=== PATIENT | male | born 1950 | race Caucasian/White ===

== ENCOUNTER 2016-12-10 04:12 | Emergency (ER) | payer MEDICARE, OTHER ==
[~2016-12-10] VITALS: Ht 175.3 cm; Wt 108.0 kg
[~2016-12-10 04:12] MED LIST: ASPI-860 PO; BPR100T PO; CITA10TA4 PO; HALO50CR2 TP; MIRA50TA PO; OXYC1TAB87 PO; PRV20T PO
--- OUTSIDE RECORDS SUMMARY | 2016-12-10 04:17 | XMS REPORT | Continuity of Care Document ---
Author Author [facility] Address Unknown Phone Unavailable Allergies Active Description Code Type Severity Reaction Onset Reported/Identified Relationship to Patient Clinical Status Yes NKA NKA Drug Allergy N/A N/A Yes No Known Drug Allergies [id number] Drug Allergy Unknown N/ A 07/16/2013 Medications Problems Date Dx Coded Attending Type Code Diagnosis Diagnosed By 07/16/2013 AMOL LAURENT, CHAIM L Ot 913.0 ABRASION FOREARM 07/16/2013 AMOL LAURENT, CHAIM L Ot 920 CONTUSION FACE/SCALP/NCK 07/16/2013 AMOL LAURENT, CHAIM L Ot 923.00 CONTUSION SHOULDER REG 07/16/2013 AMOL LAURENT, CHAIM L Ot 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 07/16/2013 AMOL LAURENT, CHAIM L Ot E000.9 UNSPECIFIED EXTERNAL CAUSE STATUS 07/16/2013 AMOL LAURENT, CHAIM L Ot E030 UNSPECIFIED ACTIVITY 07/16/2013 AMOL LAURENT, CHAIM L Ot E849.[address] NOS 07/16/2013 AMOL LAURENT, CHAIM L Ot E884.9 FALL-1 LEVEL TO OTH NEC 07/28/2014 BOBBI LAURENT, BISHOP Sears Ot 272.0 07/28/2014 BOBBI LAURENT, BISHOP Sears Ot 285.9 07/28/2014 BOBBI LAURENT, BISHOP Sears Ot 427.9 07/28/2014 BOBBI LAURENT, BISHOP Sears Ot 599.0 07/28/2014 BOBBI LAURENT, BISHOP Sears Ot 786.2 07/28/2014 BOBBI LAURENT, BISHOP Sears Ot V10.46 12/03/2014 BOBBI LAURENT, BISHOP Sears Ot 185 12/03/2014 BOBBI LAURENT, BISHOP Sears Ot 272.0 12/03/2014 BOBBI LAURENT, BISHOP Sears Ot 599.0 12/03/2014 BOBBI LAURENT, BISHOP Sears Ot 599.70 12/05/2014 BOBBI LAURENT, BISHOP R Ot 185 12/05/2014 BOBBI LAURENT, BISHOP R Ot 272.0 12/05/2014 BOBBI LAURENT, BISHOP R Ot 599.0 12/05/2014 BOBBI LAURENT, BISHOP R Ot 599.70 02/17/2015 BOBBI LAURENT, BISHOP R Ot 599.0 02/17/2015 BOBBI LAURENT, BISHOP R Ot 272.0 02/17/2015 BOBBI LAURENT, BISHOP R Ot 285.9 02/17/2015 BOBBI LAURENT, BISHOP R Ot 427.9 02/17/2015 BOBBI LAURENT, BISHOP R Ot 599.0 02/17/2015 BOBBI LAURENT, BISHOP R Ot 786.2 02/17/2015 BOBBI LAURENT, BISHOP R Ot V10.46 02/17/2015 BOBBI LAURENT, BISHOP R Ot 185 02/17/2015 BOBBI LAURENT, BISHOP R Ot 272.0 02/17/2015 BOBBI LAURENT, BISHOP R Ot 599.0 02/17/2015 BOBBI LAURENT, BISHOP R Ot 599.70 02/17/2015 BOBBI LAURENT, BISHOP R Ot 599.0 02/26/2015 BOBBI LAURENT, BISHOP R Ot 599.0 03/10/2015 BOBBI LAURENT, BISHOP R Ot 272.0 03/10/2015 BOBBI LAURENT, BISHOP R Ot V58.83 03/20/2015 BOBBI LAURENT, BISHOP Sears Ot 272.0 03/20/2015 BOBBI LAURENT, BISHOP R Ot V58.83 06/05/2015 Ot 719.46 06/05/2015 Ot 719.06 06/05/2015 Ot 719.46 06/05/2015 Ot V70.0 06/05/2015 Ot V76.44 06/05/2015 Ot 185 06/05/2015 Ot 185 06/05/2015 BOBBI LAURENT, BISHOP Sears Ot V70.0 06/05/2015 AMOL LAURENT, CHAIM L Ot 959.2 06/05/2015 AMOL LAURENT, CHAIM L Ot E849.0 06/05/2015 AMOL LAURENT, CHAIM L Ot E884.9 06/05/2015 BOBBI LAURENT, BISHOP R Ot 272.0 06/05/2015 BOBBI LAURENT, BISHOP R Ot 272.0 06/05/2015 BOBBI LAURENT, BISHOP R Ot 285.9 06/05/2015 BOBBI LAURENT, BISHOP R Ot 427.9 06/05/2015 BOBBI LAURENT, BISHOP R Ot 599.0 06/05/2015 BOBBI LAURENT, BISHOP R Ot 786.2 06/05/2015 BOBBI LAURENT, BISHOP R Ot V10.46 06/05/2015 BOBBI LAURENT, BISHOP R Ot 185 06/05/2015 BOBBI LAURENT, BISHOP R Ot 272.0 06/05/2015 BOBBI LAURENT, BISHOP R Ot 599.0 06/05/2015 BOBBI LAURENT, BISHOP R Ot 599.70 06/05/2015 BOBBI LAURENT, BISHOP R Ot 599.0 06/05/2015 BOBBI LAURENT, BISHOP R Ot 272.0 06/05/2015 BOBBI LAURENT, BISHOP R Ot V58.83 07/01/2015 BOBBI LAURENT, BISHOP R Ot D50.8 07/01/2015 BOBBI LAURENT, BISHOP R Ot E03.9 07/01/2015 BOBBI LAURENT, BISHOP R Ot E11.9 07/01/2015 BOBBI LAURENT, BISHOP R Ot I49.9 07/01/2015 BOBBI LAURENT, BISHOP R Ot N39.0 07/01/2015 BOBBI LAURENT, BISHOP R Ot R06.00 07/01/2015 BOBBI LAURENT, BISHOP R Ot R79.89 07/01/2015 BOBBI LAURENT, BISHOP R Ot Z85.46 10/19/2015 Ernesto LAURENT, Hugo Wolfe Ot C61 10/19/2015 Ernesto LAURENT, Hugo Wolfe Ot C61 10/22/2015 Ernesto LAURENT, Hugo Wolfe Ot C61 02/29/2016 Ernesto LAURENT, Hugo Wolfe Ot C61 MALIGNANT NEOPLASM OF PROSTATE 02/29/2016 Ernesto LAURENT, Hugo Wolfe Ot C61 MALIGNANT NEOPLASM OF PROSTATE 03/03/2016 Ernesto LAURENT, Hugo Wolfe Ot C61 MALIGNANT NEOPLASM OF PROSTATE 03/04/2016 Ernesto LAURENT, uHgo Wolfe Ot C61 MALIGNANT NEOPLASM OF PROSTATE 03/22/2016 Willi LAURENT, Khoi Burrows Ot M25.561 PAIN IN RIGHT KNEE 03/28/2016 Ernesto LAURENT, Hugo Wolfe Ot C61 MALIGNANT NEOPLASM OF PROSTATE 04/15/2016 Willi LAURENT, Khoi Burrows Ot M25.561 PAIN IN RIGHT KNEE 05/02/2016 Ot 719.46 JOINT PAIN-L/LEG 05/02/2016 Ot 719.06 JOINT EFFUSION-L/LEG 05/02/2016 Ot 719.46 JOINT PAIN-L/LEG 05/02/2016 Ot V70.0 ROUTINE MEDICAL EXAM 05/02/2016 Ot V76.44 SCREEN MAL NEOP-PROSTATE 05/02/2016 Ot 185 MALIGN NEOPL PROSTATE 05/02/2016 Ot 185 MALIGN NEOPL PROSTATE 05/02/2016 BOBBI LAURENT, BISHOP Sears Ot V70.0 ROUTINE MEDICAL EXAM 05/02/2016 AMOL LAURENT, CHAIM Sepulveda Ot 959.2 SHLDR/UPPER ARM INJ NOS 05/02/2016 AMOL LAURENT, CHAIM L Ot E849.0 ACCIDENT IN HOME 05/02/2016 AMOL LAURENT, CHAIM L Ot E884.9 FALL-1 LEVEL TO OTH NEC 05/02/2016 BISHOP MARTINES MD Ot 272.0 PURE HYPERCHOLESTEROLEM 05/02/2016 BISHOP MARTINES MD Ot 272.0 PURE HYPERCHOLESTEROLEM 05/02/2016 BISHOP MARTINES MD Ot 285.9 ANEMIA NOS 05/02/2016 BISHOP MARTINES MD Ot 427.9 CARDIAC DYSRHYTHMIA NOS 05/02/2016 BISHOP MARTINES MD Ot 599.0 URIN TRACT INFECTION NOS 05/02/2016 BISHOP MARTINES MD Ot 786.2 COUGH 05/02/2016 BISHOP MARTINES MD Ot V10.46 HX-PROSTATIC MALIGNANCY 05/02/2016 BISHOP MARTINES MD Ot 185 MALIGN NEOPL PROSTATE 05/02/2016 BISHOP MARTINES MD Ot 272.0 PURE HYPERCHOLESTEROLEM 05/02/2016 BISHOP MARTINES MD Ot 599.0 URIN TRACT INFECTION NOS 05/02/2016 BISHOP MARTINES MD Ot 599.70 HEMATURIA, UNSPECIFIED 05/02/2016 BISHOP MARTINES MD Ot 599.0 URIN TRACT INFECTION NOS 05/02/2016 BISHOP MARTINES MD Ot 272.0 PURE HYPERCHOLESTEROLEM 05/02/2016 BISHOP MARTINES MD Ot V58.83 ENCOUNTER FOR THERAPEUTIC DRUG MONITORIN 05/02/2016 BISHOP MARTINES MD, Ot D50.8 OTHER IRON DEFICIENCY ANEMIAS 05/02/2016 BISHOP MARTINES MD Ot E03.9 HYPOTHYROIDISM, UNSPECIFIED 05/02/2016 BISHOP MARTINES MD Ot E11.9 TYPE 2 DIABETES MELLITUS WITHOUT COMPLIC 05/02/2016 BISHOP MARTINES MD, Ot I49.9 CARDIAC ARRHYTHMIA, UNSPECIFIED 05/02/2016 BISHOP MARTINES MD, Ot N39.0 URINARY TRACT INFECTION, SITE NOT SPECIF 05/02/2016 BISHOP MARTINES MD, Ot R06.00 DYSPNEA, UNSPECIFIED 05/02/2016 BISHOP MARTINES MD, Ot R79.89 OTHER SPECIFIED ABNORMAL FINDINGS OF BLO 05/02/2016 BISHOP MARTINES MD, Ot Z85.46 PERSONAL HISTORY OF MALIGNANT NEOPLASM O 05/02/2016 Ernesto LAURENT, Hugo Wolfe Ot C61 MALIGNANT NEOPLASM OF PROSTATE 05/02/2016 Hugo Orozco MD, Ot C61 MALIGNANT NEOPLASM OF PROSTATE 05/02/2016 Willi LAURENT, Khoi Burrows Ot M25.561 PAIN IN RIGHT KNEE 05/10/2016 LANDEN TINOCO MD Ot Z13.6 ENCOUNTER FOR SCREENING FOR CARDIOVASCUL 05/12/2016 LANDEN TINOCO MD Ot Z13.6 ENCOUNTER FOR SCREENING FOR CARDIOVASCUL 05/27/2016 LANDEN TINOCO MD Ot Z13.6 ENCOUNTER FOR SCREENING FOR CARDIOVASCUL 06/08/2016 JENNY KASPER MD Ot D12.3 BENIGN NEOPLASM OF TRANSVERSE COLON 06/08/2016 JENNY KASPER MD Ot 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 06/08/2016 JENNY KASPER MD Ot E66.9 OBESITY, UNSPECIFIED 06/08/2016 JENNY KASPER MD Ot K62.1 RECTAL POLYP 06/08/2016 JENNY KASPER MD, Ot K63.5 POLYP OF COLON 06/08/2016 JENNY KASPER MD Ot Z12.11 ENCOUNTER FOR SCREENING FOR MALIGNANT NE 06/08/2016 JENNY KASPER MD Ot Z68.33 BODY MASS INDEX (BMI) 33.0-33.9, ADULT 06/08/2016 JENNY KASPER MD Ot 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 06/08/2016 JENNY KASPER MD Ot Z85.46 PERSONAL HISTORY OF MALIGNANT NEOPLASM O 06/08/2016 JENNY KASPER MD Ot Z87.891 PERSONAL HISTORY OF NICOTINE DEPENDENCE 06/13/2016 LANDEN TINOCO MD J Ot C61 MALIGNANT NEOPLASM OF PROSTATE 06/13/2016 LANDEN TINOCO MD J Ot E78.4 OTHER HYPERLIPIDEMIA 06/13/2016 LANDEN TINOCO MD J Ot C61 MALIGNANT NEOPLASM OF PROSTATE 06/13/2016 LANDEN TINOCO MD J Ot E78.4 OTHER HYPERLIPIDEMIA 06/13/2016 LANDEN TINOCO MD J Ot C61 MALIGNANT NEOPLASM OF PROSTATE 06/13/2016 LANDEN TINOCO MD J Ot E78.4 OTHER HYPERLIPIDEMIA 06/14/2016 LANDEN TINOCO MD J Ot C61 MALIGNANT NEOPLASM OF PROSTATE 06/14/2016 LANDEN TINOCO MD J Ot E78.4 OTHER HYPERLIPIDEMIA 06/17/2016 JENNY KASPER MD Ot D12.3 BENIGN NEOPLASM OF TRANSVERSE COLON 06/17/2016 JENNY KASPER MD Ot 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 06/17/2016 JENNY KASPER MD Ot E66.9 OBESITY, UNSPECIFIED 06/17/2016 JENNY KASPER MD Ot K62.1 RECTAL POLYP 06/17/2016 JENNY KASPER MD Ot K63.5 POLYP OF COLON 06/17/2016 JENNY KASPER MD Ot Z12.11 ENCOUNTER FOR SCREENING FOR MALIGNANT NE 06/17/2016 JENNY KASPER MD Ot Z68.33 BODY MASS INDEX (BMI) 33.0-33.9, ADULT 06/17/2016 JENNY KASPER MD Ot Z79.82 ALF (CURRENT) USE OF ASPIRIN 06/17/2016 JENNY KASPER MD Ot Z85.46 PERSONAL HISTORY OF MALIGNANT NEOPLASM O 06/17/2016 JENNY KASPER MD Ot Z87.891 PERSONAL HISTORY OF NICOTINE DEPENDENCE 06/17/2016 JENNY KASPER MD Ot D12.3 BENIGN NEOPLASM OF TRANSVERSE COLON 06/17/2016 JENNY KASPER MD Ot 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 06/17/2016 JENNY KASPER MD Ot E66.9 OBESITY, UNSPECIFIED 06/17/2016 JENNY KASPER MD Ot K62.1 RECTAL POLYP 06/17/2016 JENNY KASPER MD Ot K63.5 POLYP OF COLON 06/17/2016 JENNY KASPER MD Ot Z12.11 ENCOUNTER FOR SCREENING FOR MALIGNANT NE 06/17/2016 JENNY KASPER MD Ot Z68.33 BODY MASS INDEX (BMI) 33.0-33.9, ADULT 06/17/2016 JENNY KASPER MD Ot Z79.82 ALF (CURRENT) USE OF ASPIRIN 06/17/2016 JENNY KASPER MD Ot Z85.46 PERSONAL HISTORY OF MALIGNANT NEOPLASM O 06/17/2016 JENNY KASPER MD Ot Z87.891 PERSONAL HISTORY OF NICOTINE DEPENDENCE 06/17/2016 JENNY KASPER MD Ot D12.3 BENIGN NEOPLASM OF TRANSVERSE COLON 06/17/2016 JENNY KASPER MD Ot 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 06/17/2016 JENNY KASPER MD Ot E66.9 OBESITY, UNSPECIFIED 06/17/2016 JENNY KASPER MD Ot K62.1 RECTAL POLYP 06/17/2016 JENNY KASPER MD Ot K63.5 POLYP OF COLON 06/17/2016 JENNY KASPER MD Ot Z12.11 ENCOUNTER FOR SCREENING FOR MALIGNANT NE 06/17/2016 JENNY KASPER MD Ot Z68.33 BODY MASS INDEX (BMI) 33.0-33.9, ADULT 06/17/2016 JENNY KASPER MD Ot 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 06/17/2016 JENNY KASPER MD Ot Z85.46 PERSONAL HISTORY OF MALIGNANT NEOPLASM O 06/17/2016 JENNY KASPER MD Ot Z87.891 PERSONAL HISTORY OF NICOTINE DEPENDENCE 06/17/2016 JENNY KASPER MD Ot D12.3 BENIGN NEOPLASM OF TRANSVERSE COLON 06/17/2016 JENNY KASPER MD Ot 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 06/17/2016 JENNY KASPER MD Ot E66.9 OBESITY, UNSPECIFIED 06/17/2016 JENNY KASPER MD Ot K62.1 RECTAL POLYP 06/17/2016 JENNY KASPER MD Ot K63.5 POLYP OF COLON 06/17/2016 JENNY KASPER MD Ot Z12.11 ENCOUNTER FOR SCREENING FOR MALIGNANT NE 06/17/2016 JENNY KASPER MD Ot Z68.33 BODY MASS INDEX (BMI) 33.0-33.9, ADULT 06/17/2016 JENNY KASPER MD Ot 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 06/17/2016 JENNY KASPER MD Ot Z85.46 PERSONAL HISTORY OF MALIGNANT NEOPLASM O 06/17/2016 JENNY KASPER MD Ot Z87.891 PERSONAL HISTORY OF NICOTINE DEPENDENCE 06/19/2016 JENNY KASPER MD Ot D12.3 BENIGN NEOPLASM OF TRANSVERSE COLON 06/19/2016 JENNY KASPER MD Ot 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 06/19/2016 JENNY KASPER MD Ot E66.9 OBESITY, UNSPECIFIED 06/19/2016 JENNY KASPER MD Ot K62.1 RECTAL POLYP 06/19/2016 JENNY KASPER MD Ot K63.5 POLYP OF COLON 06/19/2016 JENNY KASPER MD Ot Z12.11 ENCOUNTER FOR SCREENING FOR MALIGNANT NE 06/19/2016 JENNY KASPER MD Ot Z68.33 BODY MASS INDEX (BMI) 33.0-33.9, ADULT 06/19/2016 JENNY KASPER MD Ot Z79.82 ALF (CURRENT) USE OF ASPIRIN 06/19/2016 JENNY KASPER MD Ot Z85.46 PERSONAL HISTORY OF MALIGNANT NEOPLASM O 06/19/2016 JENNY KASPER MD Ot Z87.891 PERSONAL HISTORY OF NICOTINE DEPENDENCE 06/21/2016 Ernesto LAURENT, Hugo Wolfe Ot C61 MALIGNANT NEOPLASM OF PROSTATE 06/21/2016 Willi LAURENT, Khoi Burrows Ot M25.561 PAIN IN RIGHT KNEE 07/05/2016 ATIF EPSTEIN MD, LANDEN Burrows Ot C61 MALIGNANT NEOPLASM OF PROSTATE 07/05/2016 LANDEN TINOCO MD Ot E78.4 OTHER HYPERLIPIDEMIA 07/05/2016 LANDEN TINOCO MD Ot F33.41 MAJOR DEPRESSIVE DISORDER, RECURRENT , IN 07/05/2016 LANDEN TINOCO MD Ot L40.59 OTHER PSORIATIC ARTHROPATHY 07/05/2016 LANDEN TINOCO MD Ot N39.498 OTHER SPECIFIED URINARY INCONTINENCE 07/05/2016 LANDEN TINOCO MD Ot R23.2 FLUSHING 08/26/2016 Hugo Orozco N32.81 Overactive Bladder Procedures Results Test Result Range Serum or plasma prostate specific antigen measurement (mass/volume) - 02/29/16 08:53 Serum or plasma prostate specific antigen measurement (mass/volume) 3.5 0.0-4.5 PATHOLOGY - 06/08/16 15:21 PATHOLOGY WPM Complete blood count (CBC) with automated white blood cell (WBC) differential - 06/13/16 09:50 Blood automated leukocyte count 9.86 4.0 -11.0 Erythrocytes 5.08 4.50-5.50 12.0-16.0;g/dL 14.5 13.5-17.0 Hematocrit 42.10 39.00-50.00 Automated erythrocyte mean corpuscular volume 83 80-100 Mean corpuscular hemoglobin (MCH) determination 28.5 26.0-34.0 Automated erythrocyte mean corpuscular hemoglobin concentration measurement ( mass/volume) 34.4 31.0-37.0 Erythrocyte distribution width 14.9 11.8 -15.6 Automated blood platelet count 217 150- 450 Automated blood platelet mean volume measurement 11.3 6.0-9.5 Automated neutrophil percentage 52 51- 67 Lymphocytes/100 leukocytes 29 20-46 Automated monocyte percentage 11 3-11 Eosinophil count auto 6 0-4 Automated basophil percentage 1 0-2 Automated blood neutrophil count 5.2 Blood lymphocytes count (number/volume) 2.9 Automated blood monocyte count 1.1 Blood absolute eosinophil count 0.5 Basophils 0.1 Comprehensive metabolic panel - 06/13/16 09:50 Sodium measurement 100 70-110 Carbon dioxide measurement 29 22-29 Serum or plasma anion gap 15.4 3-15 BLOOD UREA NITROGEN 18 7-18 CREATININE SERUM 1.13 0.8-1.5 Brucella species antibody panel (IgG, IgM) 16 10-20 Estimated glomerular filtration rate (GFR) 78.3 Estimated glomerular filtration rate (GFR) non- 64.7 OSMOLALITY,CALCULATED 269 280-300 CALCIUM 9.8 8.8-10.8 Calculated ionized calcium measurement 3.9 3.8-4.6 BILIRUBIN,TOTAL 0.8 0.1-1.0 Serum or plasma alkaline phosphatase measurement 108 38-126 ASPARTATE AMINO TRANSFERASE 26 15-37 ALANINE AMINOTRANSFERASE 38 30-65 Serum or plasma total protein measurement 8.3 6.4-8.5 Serum or plasma albumin measurement 4.3 3.4-5.0 Serum or plasma albumin/globulin mass ratio 1.075 1.1-1.8 General health panel - 06/13/16 09:50 Total cell count 2.98 0.46-4.68 Prostate specific Ag - 06/13/16 09:50 Prostate specific Ag 0.3 0.0-4.0 LIPID PANEL - 06/13/16 09:50 Cholesterol 198 50-200 HDL Cholesterol 73 40-60 Triglycerides 79 10-150 LDL CHOLESTEROL 109 50-130 VLDL Cholesterol, calc 16 4.00-40.00 Cholesterol.total/Cholesterol.in HDL 2.7 0.0-5.0 UA CULTURE IF INDICATED* - 06/13/16 10:00 COLLECTION METHOD CLEAN CATCH Color of urine by auto Yellow Urine appearance determination Clear Urine pH measurement by automated test strip 7.0 5.0 - 8.0 Specific gravity of urine by automated test strip 1.020 1.005-1.030 Urine protein measurement by test strip (mass/volume) Negative Negative Urine glucose detection by automated test strip Negative Negative Urine erythrocytes count by automated test strip (number/volume) Negative Negative Urine ketones detection by automated test strip Negative Negative Urine nitrite detection by test strip Negative Negative Urine total bilirubin detection by automated test strip Negative Negative Urine urobilinogen measurement by automated test strip (mass/volume) 0.2 0.2-1.0 Urine leukocyte esterase detection by dipstick Negative Negative Encounters ACCT No. Visit Date/Time Discharge Status Pt. Type Provider Facility Loc./Unit Complaint [id number] 06/08/2016 07:49:00 2015 10:43:00 [facility] [id number] 06/05/2015 14:49:00 2014 23:59:59 CLS Outpatient LARZALERE MD, [facility] LAB [id number] 02/26/2015 10:01:00 2014 23:59:59 CLS Outpatient BOBBI LAURENT, [facility] LAB [id number] 02/02/2015 15:20:00 2014 23:59:59 CLS Outpatient BOBBI LAURENT, [facility] LAB [id number] 11/10/2014 09:25:00 2014 23:59:59 CLS Outpatient BOBBI LAURENT, [facility] LAB [id number] 05/12/2014 09:35:00 2013 23:59:59 CLS Outpatient BOBBI LAURENT, [facility] RAD RAD LAB EKG [id number] 11/08/2013 09:23:00 2013 23:59:59 CLS Outpatient BOBBI LAURENT, [facility] LAB [id number] 07/16/2013 15:10:00 2012 23:59:59 CLS Outpatient AMOL LAURENT, [facility] EMS TRANSPORT TO [facility] [id number] 07/16/2013 15:20:00 2012 17:48:00 DIS Emergency AMOL LAURENT, [facility] ED HSB [id number] 05/10/2013 09:27:00 2012 23:59:59 CLS Outpatient BOBBI LAURENT, [facility] LAB [id number] 06/13/2016 10:10:00 ACT Outpatient ATIF EPSTEIN MD , [facility] LAB DROP OFF DR SANDOVAL [id number] 05/04/2016 08:12:00 ACT Outpatient ATIF EPSTEIN MD , [facility] RAD MEDICARE SCREENING AAA [id number] 03/16/2016 13:41:00 ACT Outpatient Willi LAURENT, [facility] RAD [id number] 02/29/2016 08:51:00 ACT Outpatient Ernesto LAURENT, [facility] LAB [id number] 10/19/2015 11:51:00 ACT Outpatient Ernesto LAURENT, [facility] [id number] 06/25/2012 07:30:00 Document Registration [id number] 05/11/2012 08:05:00 Document Registration [id number] 05/04/2012 09:39:00 Document Registration [id number] 04/20/2012 12:02:00 Document Registration [id number] 04/03/2012 15:00:00 Document Registration
--- OUTSIDE RECORDS SUMMARY | 2016-12-10 04:19 | XMS REPORT | Continuity of Care Document ---
Author Author [facility] Address Unknown Phone Unavailable Allergies Active Description Code Type Severity Reaction Onset Reported/Identified Relationship to Patient Clinical Status Yes NKA NKA Drug Allergy N/A N/A Yes No Known Drug Allergies [id number] Drug Allergy Unknown N/ A 07/16/2013 Medications Problems Date Dx Coded Attending Type Code Diagnosis Diagnosed By 07/16/2013 AMOL LAURENT, CHAIM L Ot 913.0 ABRASION FOREARM 07/16/2013 AMOL LAURENT, CHAIM L Ot 920 CONTUSION FACE/SCALP/NCK 07/16/2013 AMOL LAURENT, CHAIM L Ot 923.00 CONTUSION SHOULDER REG 07/16/2013 AMOL LAURENT, CHAIM L Ot 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 07/16/2013 AMOL LAURENT, CHAIM L [...] LAURENT, Hugo Wolfe Ot C61 10/19/2015 Ernesto LAURETN, Hugo Wolfe Ot C61 10/22/2015 Ernesto LAURENT, Hugo Wolfe Ot C61 02/29/2016 Ernesto LAURENT, Hugo Wolfe Ot C61 MALIGNANT NEOPLASM OF PROSTATE 02/29/2016 Ernesto LAURENT, Hugo Wolfe Ot C61 MALIGNANT NEOPLASM OF PROSTATE 03/03/2016 Ernesto LAURENT, Hugo Wolfe Ot C61 MALIGNANT NEOPLASM OF PROSTATE 03/04/2016 Ernesto LAURENT, Hugo Wolfe Ot C61 MALIGNANT [...] ADULT 06/08/2016 JENNY KASPER MD Ot 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 06/08/2016 JENNY KASPER [...] ADULT 06/17/2016 JENNY KASPER MD Ot Z79.82 SENIOR LIVING (CURRENT) USE OF ASPIRIN 06/17/2016 JENNY KASPER [...] ADULT 06/17/2016 JENNY KASPER MD Ot Z79.82 SENIOR LIVING (CURRENT) USE OF ASPIRIN 06/17/2016 JENNY KASPER [...] ADULT 06/17/2016 JENNY KASPER MD Ot 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 Type Provider Facility Loc./Unit Complaint [id number] 06/08/2016 07:49:00 2015 10:43:00 [facility] [id number] 06/05/2015 14:49:00 2014 23:59:59 CLS Outpatient LARZALERE MD, [facility] LAB [id number] 02/26/2015 10:01:00 2014 23:59:59 CLS Outpatient BOBBI LAURENT, [facility] LAB [id number] 02/02/2015 15:20:00 2014 23:59:59 CLS Outpatient BOBBI LAURENT, [facility] LAB [id number] 11/10/2014 09:25:00 2014 23:59:59 CLS Outpatient BOBBI LAURENT, [facility] LAB [id number] 05/12/2014 09:35:00 2013 23:59:59 CLS Outpatient BOBBI LAURENT, [facility] RAD RAD LAB EKG [id number] 11/08/2013 09:23:00 2013 23:59:59 CLS Outpatient BOBBI LAURENT, [facility] LAB [id number] 07/16/2013 15:10:00 2012 23:59:59 CLS Outpatient AMOL LAURENT, [facility] EMS TRANSPORT TO [facility] [id number] 07/16/2013 15:20:00 2012 17:48:00 DIS Emergency AMOL LAURENT, [facility] ED HSB [id number] 05/10/2013 09:27:00 2012 23:59:59 CLS Outpatient BOBBI LAURENT, [facility] LAB [id number] 06/13/2016 10:10:00 ACT Outpatient ATIF EPSTEIN MD , [facility] LAB DROP OFF DR SANDOVAL [id number] 05/04/2016 08:12:00 ACT Outpatient ATIF EPSTEIN MD , [facility] RAD MEDICARE SCREENING AAA [id number] 03/16/2016 13:41:00 ACT Outpatient Willi LAURENT, [facility] RAD [id number] 02/29/2016 08:51:00 ACT Outpatient Ernesto LAURENT, [facility] LAB [id number] 10/19/2015 11:51:00 ACT Outpatient Ernesto LAURENT, [facility] [id number] 06/25/2012 07:30:00 Document Registration [id number] 05/11/2012 08:05:00 Document Registration [id number] 05/04/2012 09:39:00 Document Registration [id number] 04/20/2012 12:02:00 Document Registration [id number] 04/03/2012 15:00:00 Document Registration
[2016-12-10] MEDS ORDERED: HYDR-33 PO (04:29)
[2016-12-10] MEDS ORDERED: CITA40TA19 PO (04:29)
[2016-12-10] MEDS ORDERED: CEPH500C PO (04:29)
[2016-12-10 04:55] LABS: BILIRUBIN,URINE Negative (Negative); CLARITY,URINE Clear; COLOR,URINE Yellow; GLUCOSE, URINE (UA) Negative (Negative); LEUKOCYTE ESTERASE ,URINE Negative (Negative); UROBILINOGEN,URINE 0.2 mg/dL (0.2-1.0)
[2016-12-10 05:03] LABS: URINE CENTRIFUGED VOLUME 12 mL
--- NOTE | 2016-12-10 05:27 | NUR ---
Changed urine collection bag to leg bag.
[2016-12-10 05:28] VITALS: BP 130/90
== END 2016-12-10 05:29 | disposition home or self-care (01) ==
LOC: ED 04:14
DX: R33.9 Retention of urine, unspecified (principal); F17.210 Nicotine dependence, cigarettes, uncomplicated
CPT/HCPCS: 81003; 81015; 99282